=== PATIENT | female | born 1955 | race Caucasian/White ===

== ENCOUNTER 2018-12-11 21:50 | Emergency (ER) | payer OTHER ==
[~2018-12-11] VITALS: Ht 162.6 cm; Wt 102.1 kg
[2018-12-11 22:01] VITALS: Ht 162.6 cm; Wt 102.1 kg
[2018-12-12 01:50] VITALS: BP 148/79
== END 2018-12-12 01:50 | disposition home or self-care (01) ==
LOC: ED 21:50
DX: L03.031 Cellulitis of right toe (principal); I11.0 Hypertensive heart disease with heart failure; I50.9 Heart failure, unspecified; E11.9 Type 2 diabetes mellitus without complications; Z87.442 Personal history of urinary calculi; Z88.0 Allergy status to penicillin